=== PATIENT | male | born 1990 | race Caucasian/White ===

== ENCOUNTER → 2016-09-17 | Outpatient (CLI) | payer OTHER | LOC: FIMAGING 09:18 → EDSTATUS 09:19 | PROVIDERS: ATTEND Family Medicine | DX: M62.830 Muscle spasm of back (principal) ==

== ENCOUNTER → 2016-10-18 | Outpatient (CLI) | payer OTHER | LOC: FIMAGING 08:08 | PROVIDERS: ATTEND Family Medicine | DX: M50.923 Unspecified cervical disc disorder at C6-C7 level (principal); R20.0 Anesthesia of skin; R29.898 Other symptoms and signs involving the musculoskeletal system ==

== ENCOUNTER → 2016-11-03 | Outpatient (CLI) | payer OTHER | LOC: CIMAGING 08:49 | PROVIDERS: ATTEND Family Medicine | DX: E04.1 Nontoxic single thyroid nodule (principal) | CPT/HCPCS: 76536-PO ==